=== PATIENT | male | born 1940 | race African-American/Black ===

== ENCOUNTER → 2024-12-20 | Outpatient (CLI) | payer MEDICARE, MEDICAID, SELFPAY ==
--- NOTE | 2024-12-20 08:57 | XR_ITS ---
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
== END | disposition home or self-care (01) ==
PROVIDERS: PCP Student in an Organized Health Care Education/Training Program; Referring Provider Student in an Organized Health Care Education/Training Program; Visit Provider Student in an Organized Health Care Education/Training Program
DX: M19.011 Primary osteoarthritis, right shoulder (principal)
CPT/HCPCS: 73030

== ENCOUNTER → 2024-12-23 | Outpatient (CLI) | payer MEDICARE, MEDICAID, SELFPAY ==
--- NOTE | 2024-12-23 09:37 | XR_ITS ---
Examination: Shoulder,right, 3 views Technique: Shoulder AP internal rotation, AP external rotation, Y view shoulder, 3 views Exam date and time :December 23, 2024 0940 hours Comparison December 20, 2024 INDICATIONS: Right shoulder pain one week. FINDINGS: Again noted large pulmonary mass right upper lobe, at least 9 cm Moderate osteoarthritis glenohumeral joint No shoulder fracture IMPRESSION: Again noted large pulmonary mass right upper lobe, recommend CT chest post intravenous contrast follow-up
== END | disposition home or self-care (01) ==
PROVIDERS: PCP Nurse Practitioner Family; Referring Provider Student in an Organized Health Care Education/Training Program; Visit Provider Student in an Organized Health Care Education/Training Program
DX: M19.011 Primary osteoarthritis, right shoulder (principal)
CPT/HCPCS: 73030

== ENCOUNTER → 2025-01-17 | Outpatient (CLI) | payer MEDICARE, MEDICAID, SELFPAY ==
[2025-01-17 14:54] LABS: Anion Gap 10 (7-16); BUN/Creatinine Ratio 20 Ratio (12-20); Blood Urea Nitrogen 16 mg/dL (9-23); Calcium 9.8 mg/dL (8.3-10.6); Carbon Dioxide 28.9 mMol/L (20.0-31.0); Chloride 105 mMol/L (98-107); Creatinine (Component) 0.8 mg/dL (0.6-1.3); Glucose 98 mg/dL (74-106); Osmolality,Calculated 288 (275-295); Potassium 3.9 mMol/L (3.4-5.1); Sodium 144 mMol/L (136-145); eGFR > 60 See Note
--- NOTE | 2025-01-17 16:53 | XR_ITS ---
Examination: CT chest with intravenous contrast 2-D sagittal and coronal reconstructions Exam date and time: January 17, 2025, 1751 hours INDICATIONS: Large pulmonary mass right upper lobe noted on right shoulder films December 23, 2024 CTDI:vol (mGy) 12.3 DLP: (mGycm) 4-77. Technique: Multiple axial sections of the thorax have been obtained. Sections have been obtained, 3 mm slice thickness. Mediastinal and lung density settings have been obtained. Intravenous contrast administered, 60 cc Isovue 370. 2-D sagittal, coronal images obtained. Low dose protocols were performed. One or more of the following dose reduction techniques were used; automated exposure control, adjustment of the mA and/or KV according to patient size, use of iterative reconstruction technique. 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
== END | disposition home or self-care (01) ==
LOC: CCTX 13:07 → COPL 13:12 → CCTX 02-02 15:21
PROVIDERS: Referring Provider Student in an Organized Health Care Education/Training Program; Visit Provider Student in an Organized Health Care Education/Training Program
DX: R22.2 Localized swelling, mass and lump, trunk (principal); R59.0 Localized enlarged lymph nodes; E27.8 Other specified disorders of adrenal gland; C78.01 Secondary malignant neoplasm of right lung
CPT/HCPCS: 36415; 71260; 80048; A4649; Q9967

== ENCOUNTER 2025-02-06 09:12 | Inpatient (IN) | payer MEDICARE, MEDICAID, SELFPAY ==
[2025-02-06] VITALS (11 sets, daily range): BP systolic 102–150; BP diastolic 67–88; PULSE 70–95; RESP 16–95; TEMP 36.3–37; O2SAT 92–98; BMI 30.4
--- NOTE | 2025-02-06 09:29 | PC.NURSE ---
in to assess pt. pt with c/o chronic lower back pain. per nephew chronic back pain for several years and takes norco prescribed by pcp for the pain. pt also c/o right shoulder pain x3 weeks. states he fell 2-3 weeks ago, legs gave out. pt lives alone and is normally able to get around by himself with cane or walker. pt without further complaints at this time. call light placed within reach. nephew ar bedside. pending providers orders.
--- NOTE | 2025-02-06 11:05 | EDNOTE_ITS ---
ED Back Injury Pain RME/HPI General Chief Complaint: Back Pain/Injury Stated Complaint: BACK PAIN Time Seen by Provider: 02/06/25 10:50 Arrival date/time: 02/06/25 09:12 85-year-old male who is here today for unclear reasons. He is somewhat of poor historian. He states he has right shoulder pain and low back pain. It is unclear if this is acute, chronic, or acute on chronic. He denies any chest pain. He has no abdominal pain, nausea, or vomiting. He has no diarrhea. He states he has frequent urination for the past 2 years but has no dysuria. He has no fevers or chills. He denies any lower leg edema. He states he takes about 6 medications but is not sure what they are. He lives home alone in a duplex though his nephew assists with his care. He states his nephew called 911 today. The reason for and the 911 call is unclear. He states his nephew is in the hospital but is currently not at bedside. Limitations: no limitations Related Data Home Medications ?Medication ?Instructions ?Recorded ?Confirmed lisinopril 10 mg tablet 10 mg PO QDAY ##0 06/24/09 0 12/21/20 metformin 1,000 mg tablet 1,000 mg PO BID ##0 06/24/09 12/21/20 amlodipine 5 mg tablet (Norvasc) 5 mg PO QDAY #0 tabs 01/16/17 12/21/20 albuterol sulfate 90 mcg/actuation 2 puff inhalation Q 6HR PRN 03/31/17 12/21/20 aerosol inhaler (Proventil HFA) SHORTNESS OF BREATH #0 inhalations calcium carbonate 1 tab PO QDAY 04/05/1912/21 fluticasone fur. 100 mcg-umeclid 1 puff inhalation QDA Y 04/05/19 12/21/20 62.5 mcg-vilant 25 mcg inhalat.powder (Trelegy Ellipta) tiotropium bromide 18 mcg capsule 1 cap inhalation QDA Y 04/05/19 12/21/20 with inhalation device (Spiriva with HandiHaler) valacyclovir 1 gram tablet 1 g PO HS 04/05/19 12/21/20 hydrocodone 7.5 mg-acetaminophen 1 tab PO TID PRN 08/0 01/2912/21/20 325 mg tablet (Curtice) oxybutynin chloride 10 mg 10 mg PO QDAY 08/17/2012/21 tablet,extended release 24 hr Allergies Allergy/AdvReac Type Severity Reaction Status Date / Time No Known Allergies Allergy Verified 12/21/20 15:36 Review of Systems Review of Systems Systems Reviewed: All systems reviewed, normal except as documented ED Exam General Limitations: Present no limitations General appearance: Present alert and in no apparent distress Head Head exam: Present atraumatic Eye Eye exam: Present normal appearance, PERRL and EOMI ENT ENT exam: Present normal exam, normal oropharynx and mucous membranes moist Neck Neck exam: Present normal inspection, full ROM and trachea midline Chest Chest inspection: Present normal inspection and symmetric chest wall rise Respiratory Respiratory exam: Present normal lung sounds bilaterally Cardiovascular Cardiovascular exam: Present regular rate, normal rhythm and normal heart sounds Abdominal Exam Abdominal exam: Present soft; Absent distention, guarding or rebound Extremities Exam Extremities exam: Present normal inspection and full ROM Back Exam Back exam: Present normal inspection and full ROM Neurological Exam Neurological exam: Present alert and oriented X3 Psychiatric Psychiatric exam: Present normal affect and normal mood Skin Skin exam: Present warm, dry, intact and normal color Course Course Course Narrative: Spoke with patient's primary provider, Cesar Hernández PA-C at [facility], we discussed patient's outpatient workup. He had a CT of the chest on 01/17/2025 and the results are concerning for a necrotic pulmonary mass involving the 2nd and 3rd ribs on the right side. Patient has a pending workup including CT of the neck, abdomen, and pelvis. We discussed obtaining cancer markers additionally. Patient has been referred to Dr. Baltazar with hematology and Dr. Mcdonnell with pulmonology, those appointments and approval for those referrals are pending. Will obtain the CT of the neck, abdomen, pelvis, and cardiac markers here. A call was placed to Dr. Baltazar with oncology at approximately 20 3:50 PM, Dr. Baltazar is not on-call. Spoke with the oncology team at [facility] at 1820 p.m. They are willing to assist in the patient's care. Transfer team will present this to their hospitalist team. Took call from [facility] at approximately 0651, I was informed that the hospitalist did not believe the patient met admission criteria but was willing to review the chart. They will call back. At approximately 21:50 PM, I presented the case to our [facility] hospitalist team and spoke Ortho resident physician. He will discuss this with his attending and respond. Quality Measures none Orders Category Date Time Status CT Screening NOW Care 02/06/25 13:32 Active EKG (ED ONLY) *Do not use* NOW Care 02/06/25 11:42 Completed Transfer to another facility [Transfer/Discharge] Stat Discharge 02/06/25 16:[address] chest abdomen pelvis w Stat Exams 02/06/25 13:[address] soft tissue neck w con Stat Exams 02/06/25 13:32 Completed EKG (ED Only) Stat Exams 02/06/25 11:41 Ordered XR shoulder RT min 2V Stat Exams 02/06/25 11:43 Completed Orfuw-7-Kfsesqefual* Stat Lab 02/06/25 14:10 Received CA 125 Stat Lab 02/06/25 14:10 Completed CA 15-3 Stat Lab 02/06/25 14:10 Completed CBC Stat Lab 02/06/25 12:33 Completed CMP [Comprehensive Metabolic Panel] Stat Lab 02/06/25 12:33 Completed TSH [Thyroid Stimulating Hormone] Stat Lab 02/06/25 12:33 Completed UA, C/S IF [Urinalysis, C/S if Indicated] Stat Lab 02/06/25 13:16 Completed Morphine Inj Med 02/06/25 19:40 Discontinued 2 mg IVP X1 ONE Morphine Inj Med 02/06/25 21:56 Discontinued 2 mg IVP X1 ONE Vital Signs Vital signs: Vital Signs Temperature 98.3 F 02/06/25 09:15 Pulse Rate 72 02/06/25 09:15 Respiratory Rate 17 02/06/25 09:15 Blood Pressure 110/67 02/06/25 09:15 Pulse Oximetry (%) 96 02/06/25 09:15 Oxygen Delivery Method Room Air 02/06/25 09:15 Back Pain / Injury MDM Narrative MDM Narrative:: His nephew was at bedside at a later time and informed that the patient has had increased weakness for the past month. He normally uses a cane or walker to ambulate but has had increased weakness and now is unable to walk. Patient apparently was seen by his PCP for the last 2 weeks for this workup was initiated with a do not have the results. Review of his records indicated patient had a CT of the chest on January 17. CT revealed a necrotic pulmonary mass in the right upper lobe extending to the 2nd and 3rd ribs. There is mediastinal involvement. I was able to contact his PCP, Cesar Hernández PA-C. Additional workup was request including CT of the neck, abdomen, pelvis, and cancer markers. Patient has pending referrals to oncology and pulmonology but has not been accepted. In summary, patient is a 85-year-old male with a history of type 2 diabetes, hypertension, and is here in the emergency room for increased fatigue and generalized weakness. He is now at the point where he is no longer ambulating. This is a significant change coordinator the past month. We obtained a CTA of his neck, chest, abdomen, and pelvis today. Findings are consistent with his prior CT with no other masses noted. Patient has a leukocytosis here at 16.4 K. Hemoglobin is 9.8, hematocrit is 28.9. Metabolic panel is essentially unremarkable. Urinalysis is unremarkable. Patient would benefit from oncology consult, consider biopsy in addition to cardiothoracic surgery. Transfer request was initiated. At approximately 17:05 PM, I spoke with Fadi at the transfer center at [facility]. Their oncology services have closed for the evening and will their on- call services will not be available till 6:00 in the morning tomorrow. At 20 2:15 PM, case discussed with our nightshift hospitalist team. Discussed case with the resident physician who will evaluate the patient for admission. Patient data External records reviewed:: [facility] previous records Clinical information provided by:: patient, EMS and family Social determinants that could affect healthcare access:: none Patient has the following chronic illnesses:: Hypertension, diabetes How is presenting disease/condition affected by chronic disease/condition?: uneffected by Evaluation data The following diagnostics were reviewed and interpreted by me:: EKG tracing(s) (EKG obtained today reveals normal sinus rhythm at 71 bpm with PVCs present.) Lab and/or radiology exams considered but not ordered:: n/a Interpretation Summary: Chest mass with mediastinal involvement Medications / Prescriptions Medications or Prescriptions considered but not ordered:: n/a Medication administrations:: Medication Administration History Acetaminophen (Acetaminophen 325 Mg Tablet) 650 mg PO Q6H PRN PRN Reason: PAIN SCALE 1-3 (mild Stop: 03/08/25 22:46 Hydrocodone Bitart/Acetaminophen (Hydrocodone/Apap 5/325 Tablet) 1 tab PO Q4HR PRN PRN Reason: PAIN SCALE 4-6 (Moderate Stop: 02/11/25 22:46 Dextrose (Dextrose 50%-Water Inj 50 Ml Syringe) 25 ml IV Q15MIN PRN PRN Reason: BG 50-70 responsive npo pt Stop: 03/08/25 23:03 Dextrose (Dextrose 50%-Water Inj 50 Ml Syringe) 50 ml IV Q15MIN PRN PRN Reason: BG <50 OR BG <70 & pt unresponsive Stop: 03/08/25 23:03 Glucagon (Glucagon Inj 1 Mg Vial) 1 mg IM Q15MIN PRN PRN Reason: BG <70, and no IV access Lactated Ringer's (Lactated Ringers) 1,000 mls @ 75 mls/hr IV .[id number] [facility] Stop: 03/08/25 22:59 Last Admin: 02/06/25 23:00 Dose: 75 mls/hr Documented By: MARIELA Insulin Human Lispro (Insulin Lispro (Admelog) 1 Unit/0.01 Ml Unit) 0 unit SC [facility]; Protocol Stop: 03/09/25 07:29 Morphine Sulfate (Morphine Sulf Inj 10 Mg/Ml Vial) 1 mg IVP Q4H PRN PRN Reason: PAIN SCALE 7-10 (Severe Stop: 02/11/25 22:46 Discontinued Medications Morphine Sulfate (Morphine Sulf Inj 10 Mg/Ml Vial) 2 mg IVP X1 ONE Stop: 02/06/25 19:41 Last Admin: 02/06/25 20:05 Dose: 2 mg Documented By: MARIELA Morphine Sulfate (Morphine Sulf Inj 10 Mg/Ml Vial) 2 mg IVP X1 ONE Stop: 02/06/25 21:57 Last Admin: 02/06/25 22:09 Dose: 2 mg Documented By: MARIELA See above Consultations Consultation(s) initiated? (list below): No Diagnosis Most likely diagnosis given after review of the tests above:: Chest mass with acute weakness Admission Indicated Admission indicated?: indicated Admission Request Was there a request for admission?: Yes Admission Attestation Admission request attestation: Discussed case with [] from Hospitalist service regarding admission. Discussed patients ED course, exam findings, labs, and radiology results. The Hospitalist [agrees,declines] to accept the patient for admission. Disposition Plan Disposition Plan: Admit Discharge Plan Plan Patient Disposition: Admit Acute Care w/in Hospital Patient condition on transfer: Stable Problem List Clinical Impression: Chest mass
--- NOTE | 2025-02-06 11:43 | XR_ITS ---
Examination: Shoulder,right, 3 views Technique: Shoulder AP internal rotation, AP external rotation, Y view shoulder, 3 views Exam date and time :January 17, 2025 1158 hours INDICATIONS: Right shoulder pain this week FINDINGS: Moderate narrowing glenohumeral joint No shoulder fracture or dislocation Large pulmonary mass right upper lobe, please see the CT chest report January 17, 2025 describing this mass Cortical bone destruction involving the right second and third ribs IMPRESSION: Large pulmonary neoplasm right upper lobe destroying portions of the right second and third ribs
[2025-02-06 12:47] LABS: Basophils # (Auto) 0.1 Thou/mm3 (0.0-0.2); Basophils % (Auto) 0 % (0-2.5); Eosinophils # (Auto) 0.3 Thou/mm3 (0.0-0.5); Eosinophils % (Auto) 2 % (0-10); Hematocrit 28.9 % (41.0-53.0); Hemoglobin 9.8 g/dL (13.5-16.0); Immature Granulocytes Auto 0.07 Thou/mm3 (0.00-0.00); Lymphocytes # (Auto) 3.6 Thou/mm3 (1.0-4.8); Lymphocytes % (Auto) 22 % (10-50); Mean Corpuscular HGB Conc 33.9 g/dl (31.0-37.0); Mean Corpuscular Hemoglobin 26.2 pg (25.0-35.0); Mean Corpuscular Volume 77 fL (80-100); Monocytes # (Auto) 1.6 Thou/mm3 (0.0-0.8); Monocytes % (Auto) 10 % (0-12); Neutrophils # (Auto) 10.9 Thou/mm3 (1.8-7.7); Neutrophils % (Auto) 66 % (37-80); Nucleated Red Blood Cell # 0.00 Thou/mm3 (0.00-0.00); Nucleated Red Blood Cell % 0 /100 WBC (0); Platelet Count 353 Thou/mm3 (140-440); RDW Standard Deviation 39.8 fL (35.1-43.9); Red Blood Count 3.74 Miln/mm3 (4.50-5.90); White Blood Count 16.4 Thou/mm3 (3.8-10.6)
[2025-02-06 13:09] LABS: Alanine Aminotransferase < 7 U/L (10-49); Albumin, Serum 3.9 gm/dL (3.4-4.8); Albumin/Globulin Ratio 1.3 (1.2-2.2); Alkaline Phosphatase 68 U/L (46-116); Anion Gap 8 (7-16); Aspartate Amino Transferase 14 U/L (0-34); BUN/Creatinine Ratio 14 Ratio (12-20); Bilirubin,Total 0.4 mg/dL (0.3-1.2); Blood Urea Nitrogen 11 mg/dL (9-23); Calcium 11.7 mg/dL (8.3-10.6); Calcium (Corrected) 11.8 mg/dL (8.5-10.1); Carbon Dioxide 29.6 mMol/L (20.0-31.0); Chloride 105 mMol/L (98-107); Creatinine (Component) 0.8 mg/dL (0.6-1.3); Estimated Creatinine Clearance 72.5 mL/min (>60); Globulin 2.9 gm/dL (2.3-3.5); Glucose 107 mg/dL (74-106); Osmolality,Calculated 284 (275-295); Potassium 3.9 mMol/L (3.4-5.1); Sodium 143 mMol/L (136-145); Thyroid Stimulating Hormone 0.19 uIU/mL (0.55-4.78); Total Protein 6.8 gm/dL (5.7-8.2); eGFR > 60 See Note
[2025-02-06 13:32] LABS: Collection Type, Urine Voided
--- NOTE | 2025-02-06 13:32 | XR_ITS ---
Examination: CT chest with intravenous contrast CT abdomen with intravenous contrast CT pelvis with intravenous contrast 2-D coronal and sagittal reconstructions Time of exam: February 06, 2025 1506 hours INDICATIONS: Weight loss this month with pulmonary mass right upper lobe destroying right ribs, noted on CT chest January 17, 2025 CTDI: vol (mGy) : 10.8 DLP: (mGycm): 802 Technique: Multiple axial images of the chest, abdomen and pelvis with intravenous contrast, 3.0 mm slice thickness. Images obtained post intravenous injection Isovue 370 60 cc. 2-D sagittal and coronal reconstructions. Low dose protocols were performed. One or more of the following dose reduction techniques were used; automated exposure control, adjustment of the mA and/or KV according to patient size, use of iterative reconstruction technique. Findings: Again noted necrotic pulmonary mass right upper lobe, 8.2 x 6.8 cm with bone destruction involving the right second and third rib again noted No pneumonia or pulmonary edema 5 mm pulmonary nodule right lower lobe image 222 21 mm liver cyst No focal liver lesions No gallstones Spleen not enlarged Upper pole left renal cyst, 5.8 cm Aorta normal size No bowel obstruction 25 mm fat-containing umbilical hernia No pericecal inflammatory change Colonic diverticulosis Urinary bladder intact Fat-containing left inguinal hernia Severe osteopenia with diffuse advanced lumbar degenerative disc disease IMPRESSION: 8 x 2 x 6.8 cm pulmonary neoplasm right upper lobe destroying portions of the right second and third rib 5 mm metastatic pulmonary nodule right lower lobe No abdominal or pelvic mass
--- NOTE | 2025-02-06 13:32 | XR_ITS ---
Examination: CT soft tissue neck, with intravenous contrast. 2-D coronal reconstructions. 2-D sagittal reconstructions. Date and time of exam :January 29, 2025 1506 hours INDICATIONS: Weight loss, large pulmonary mass right upper lobe destroying right upper ribs on CT chest January 17, 2025, staging. CTDI: vol (mGy):18.6 DLP: (mGycm):1 Technique: 1.25 mm axial sections of the neck of the obtained. Coronal and sagittal reconstructions have been obtained. Intravenous contrast administered 60 cc Isovue-370. Low dose protocols were performed. One or more of the following dose reduction techniques were used; automated exposure control, adjustment of the mA and/or KV according to patient size, use of iterative reconstruction technique. Findings: Symmetrical nasopharynx oropharynx No pathologic carotid triangle or submental cervical lymphadenopathy Patient motion obscures detail No definite laryngeal mass Normal gallbladder is Diffuse advanced cervical degenerative disc disease IMPRESSION: No soft tissue neck mass, consider PET CT scan follow-up for staging
[2025-02-06 13:36] LABS: Bilirubin,Urine Negative (Negative); Blood,Urine Negative (Negative); Clarity,Urine Clear (Clear/Hazy); Color,Urine Yellow (Lt Yel-Yel); Culture Indicated,Urine Not Indicated; Glucose, Urine Negative (Negative); Hyaline Casts,Urine 1 /hpf (0-1); Ketones,Urine Negative (Negative); Leukocyte Esterase,Urine Negative (Negative); Nitrite,Urine Negative (Negative); PH,Urine 6.0 (5.0-7.0); Protein,Urine Negative (Neg - Trace); RBC,Urine 2 /hpf (0-3); Specific Gravity,Urine 1.018 (1.001-1.035); Squamous Epithelial Cell,Urine 1 /hpf (0-5); Urobilinogen,Urine Negative mg/dL (0.0-1.0); WBC,Urine 3 /hpf (0-5)
[2025-02-06 15:24] LABS: CA 125 14.0 U/mL (<30.2); CA 15-3 22.8 U/mL (<32.4)
--- NOTE | 2025-02-06 16:25 | PC.CC ---
Addendum entered by Nelly Mercedes RN 02/06/25 19:16: Transfer packet started w/ CD and handed to charge nurse Estelle. ED to continue transfer search and complete transfer packet. Addendum entered by Nelly Mercedes RN 02/06/25 18:56: Called [facility] TC, per Ciara call back in about 10 min. Addendum entered by Nelly Mercedes RN 02/06/25 18:54: clinicals and imaging sent to [facility]. Addendum entered by Nelly Mercedes RN 02/06/25 18:53: 1852: per Keith restrepo/ [facility], no oncology services oncall Addendum entered by Nelly Mercedes RN 02/06/25 18:45: 1844: Sent clinicals and imaging to [facility]. 1725: per Michelle, she is waiting for Oncology to respond. Addendum entered by Nelly Mercedes RN 02/06/25 17:08: 1705: spoke to Fadi at [facility], transfer req initiated. Fadi spoke to [facility]. Fadi stated clinicals sent to oncologist but went off call at 1700 and did not respond. Will continue to look for other facilities. Addendum entered by Nelly Mercedes RN 02/06/25 16:43: 1628: spoke to Michelle at [facility], transfer request initiated. Michelle requested to speak to [facility], call initiated. Michelle will have nurse review and call back with a determination. Per Joanna, pt is a med surg level. Original Note: received order for transfer for oncology services for pulmonary mass, rib, mediastinal involvment. Clinicals sent to [facility], and [facility]. called [facility] - no oncology oncall per Qing.
[2025-02-06] MEDS: MORPHINE SULF INJ 10 MG/ML VIAL 2 MG IVP ×2 (20:05→22:09)
--- NOTE | 2025-02-06 20:42 | PC.NURSE ---
pt was soiled. this rn changed pt with the help of matias. gown and sheets were changed
--- NOTE | 2025-02-06 22:10 | PC.NURSE ---
Per Michelle at [facility], states the hospitalist team doesn't feel the need for admission and states the pt can be seen out pt. PT has been already accepted by the oncology team so can follow up out pt, with Oncologist Referral.
[2025-02-06] MEDS: RINGERS LACTATED 1000 ML 1,000 ML 75 ML IV (23:00)
[2025-02-06 23:28] LABS: Magnesium 1.5 mg/dL (1.6-2.6)
--- NOTE | 2025-02-06 23:43 | ESHP_ITS ---
<Statement entered by Raphael Larios MD - 02/08/25 07:32> I have discussed and was present for the essential components of the history, physical examination, diagnosis, and treatment plan with the resident. I agree with the patient's care as documented by the resident and amended herein by me. Raphael Larios MD FACP. Documentation for date of: 02/06/25 HPI History of Present Illness Chief complaint: Weakness History of present illness: 85-year-old male with past medical history of hypertension, yzm-qoziiss-tajjfprth type 2 diabetes, prostatectomy presenting to the ED on 02/06 with increased weakness. Patient usually lives alone but states that for the past week or so he has been have difficulty taking care of himself. Patient states that he is not able to walk as his legs are giving out but denies any loss of consciousness, dizziness, palpitations, shortness of breath or chest pain. Patient has significant history of [id number] tobacco and recently quit around October when his brother . Patient has family in [place], a niece who is close by and was updated regarding the patient's findings afterwards. Medical history: As stated above Surgical history: Prostatectomy Allergies: NKDA Home medications: Pending med rec Family history: Noncontributory Social history: 30 pack year history, remote history of alcohol use denies any illicit drug use. Patient lives alone and is usually able to take care of himself, ambulates ROS: All 12 systems assessed and the patient denies unless otherwise stated in HPI In the ED, patient presented normotensive, regular heart rate, respiratory of 17, afebrile satting 96 on room air. Pertinent lab findings included WBC 16.4, hemoglobin 9.8 with MCV of 77, creatinine 0.8, BUN 11, calcium 11.8, magnesium 1.5, TSH 0.19, urinalysis shows no signs of infection. Shoulder x-ray shows a large pulmonary neoplasm in the right upper lobe, chest CT abdomen shows 8 x 2 x 6.8 cm pulmonary neoplasm in the right upper lobe destroying portions of the right 2nd and 3rd rib, 5 mm metastatic pulmonary nodule in the right lower lobe and soft tissue of the neck which was ordered shows no soft tissue or neck mass. Patient will be admitted for the management of symptomatic hypercalcemia along with workup for very likely lung cancer with oncology consultation. Exam Vital Signs Temp Pulse Resp BP Pulse Ox O2 Del Method O2 Flow Rate 98.6 F 82 17 102/77 92 L Room Air 6 02/06/25 22:04 02/06/25 23:01 02/06/25 23:01 02/06/25 23:01 02/06/25 23:01 02/06/25 23:01 02/06/25 11:35 Narrative Exam Physical Exam: GENERAL: Awake, answering questions appropriately, appears stated age, frail appearing HEENT: NC/AT. Moist mucosa. PERRLA/EOMI. CARDIO: Heart RRR, grade II/IV systolic ejection murmur, no JVD. PULM: No coughing or visible SOB. Lungs CTA B/L but reduced breath sounds on the right upper lobe. GI: Abdomen soft, NT/ND, +BS. SKIN/MSK/EXT: No wounds/discoloration/rashes/edema/amputations. +Pedal pulses present B/L. NEURO: Oriented x3, Moves extremities x4, no focal neurologic deficits noted Results: Labs 02/06/25 12:33 02/06/25 12:33 Labs: Short CBC 02/06/25 Range/Units 12:33 WBC 16.4 H (3.8-10.6) Thou/mm3 Hgb 9.8 L (13.5-16.0) g/dL Hct 28.9 L (41.0-53.0) % Plt Count 353 (140-440) Thou/mm3 BMP 02/06/25 12:33 Sodium 143 Potassium 3.9 Chloride 105 Carbon Dioxide 29.6 BUN 11 Creatinine 0.8 Glucose 107 H Calcium 11.7 H Liver Function 02/06/25 Range/Units 12:33 Total Bilirubin 0.4 (0.3-1.2) mg/dL AST 14 (0-34) U/L ALT < 7 L (10-49) U/L Alkaline Phosphatase 68 (46-116) U/L Albumin 3.9 (3.4-4.8) gm/dL Urine 02/06/25 Range/Units 13:16 Urine Color Yellow (Lt Yel-Yel) Urine Clarity Clear (Clear/Hazy) Urine pH 6.0 (5.0-7.0) Ur Specific [place] 1.018 (1.001-1.035) Urine Protein Negative (Neg - Trace) Urine Glucose (UA) Negative (Negative) Quality Measures Quality Measures none Advance care planning discussed with:: patient and other (Niece) Medications Home Medications and Allergies Home Medications ?Medication ?Instructions ?Recorded ?Confirmed ?Type lisinopril 10 mg tablet 10 mg PO QDAY ##0 06/24/09 0 12/21/20 History metformin 1,000 mg tablet 1,000 mg PO BID ##0 06/24/09 12/21/20 History amlodipine 5 mg tablet (Norvasc) 5 mg PO QDAY #0 tabs 01/16/17 12/21/20 History albuterol sulfate 90 mcg/actuation 2 puff inhalation Q 6HR PRN 03/31/17 12/21/20 History aerosol inhaler (Proventil HFA) SHORTNESS OF BREATH #0 inhalations calcium carbonate 1 tab PO QDAY 04/05/1912/21 History fluticasone fur. 100 mcg-umeclid 1 puff inhalation QDA Y 04/05/19 12/21/20 History 62.5 mcg-vilant 25 mcg inhalat.powder (Trelegy Ellipta) tiotropium bromide 18 mcg capsule 1 cap inhalation QDA Y 04/05/19 12/21/20 History with inhalation device (Spiriva with HandiHaler) valacyclovir 1 gram tablet 1 g PO HS 04/05/19 12/21/20 History hydrocodone 7.5 mg-acetaminophen 1 tab PO TID PRN 0801/2912/21/20 History 325 mg tablet ([place]) oxybutynin chloride 10 mg 10 mg PO QDAY 08/17/2012/21 History tablet,extended release 24 hr Allergies Allergy/AdvReac Type Severity Reaction Status Date / Time No Known Allergies Allergy Verified 12/21/20 15:36 Visit Medications Acetaminophen (Acetaminophen 325 Mg Tablet) 650 mg PO Q6H PRN PRN Reason: PAIN SCALE 1-3 (mild Stop: 03/08/25 22:46 Hydrocodone Bitart/Acetaminophen (Hydrocodone/Apap 5/325 Tablet) 1 tab PO Q4HR PRN PRN Reason: PAIN SCALE 4-6 (Moderate Stop: 02/11/25 22:46 Dextrose (Dextrose 50%-Water Inj 50 Ml Syringe) 25 ml IV Q15MIN PRN PRN Reason: BG 50-70 responsive npo pt Stop: 03/08/25 23:03 Dextrose (Dextrose 50%-Water Inj 50 Ml Syringe) 50 ml IV Q15MIN PRN PRN Reason: BG <50 OR BG <70 & pt unresponsive Stop: 03/08/25 23:03 Glucagon (Glucagon Inj 1 Mg Vial) 1 mg IM Q15MIN PRN PRN Reason: BG <70, and no IV access Lactated Ringer's (Lactated Ringers) 1,000 mls @ 75 mls/hr IV .[id number] [facility] Stop: 03/08/25 22:59 Last Admin: 02/06/25 23:00 Dose: 75 mls/hr Insulin Human Lispro (Insulin Lispro (Admelog) 1 Unit/0.01 Ml Unit) 0 unit [facility]; Protocol Stop: 03/09/25 07:29 Morphine Sulfate (Morphine Sulf Inj 10 Mg/Ml Vial) 1 mg IVP Q4H PRN PRN Reason: PAIN SCALE 7-10 (Severe Stop: 02/11/25 22:46 Discontinued Medications Morphine Sulfate (Morphine Sulf Inj 10 Mg/Ml Vial) 2 mg IVP X1 ONE Stop: 02/06/25 19:41 Last Admin: 02/06/25 20:05 Dose: 2 mg Morphine Sulfate (Morphine Sulf Inj 10 Mg/Ml Vial) 2 mg IVP X1 ONE Stop: 02/06/25 21:57 Last Admin: 02/06/25 22:09 Dose: 2 mg Assessment & Plan Plan 85-year-old male with past medical history of hypertension, ain-ixypjsz-kgepoxbjp type 2 diabetes, prostatectomy presenting to the ED on 02/06 with increased weakness will be admitted for the management of symptomatic hypercalcemia along with workup for very likely lung cancer with oncology consultation. #Hypercalcemia #Paraneoplastic syndrome As noted above, patient is presenting with weakness which has been ongoing for about 1 week Likely secondary to hypercalcemia, no neurologic deficits noted on exam Hypercalcemia likely secondary to lung cancer below Plan: IV fluid resuscitation Consider using IV bisphosphonates and calcitonin but calcium is not that high yet Monitor calcium closely #Lung cancer #Possible Pancoast tumor #Leukocytosis Patient has risk factors including greater than [id number] smoking history Presenting with weakness likely secondary to hypercalcemia as above, paraneoplastic syndrome On examination, patient is on room air and lung sound clear to auscultation, reduced breath sounds on the right No source for leukocytosis found, no mention of pneumonia and urine is clean Shoulder x-ray shows a large pulmonary neoplasm in the right upper lobe Chest CT abdomen shows 8 x 2 x 6.8 cm pulmonary neoplasm in the right upper lobe destroying portions of the right 2nd and 3rd rib, 5 mm metastatic pulmonary nodule in the right lower lobe Soft tissue of the neck which was ordered shows no soft tissue or neck mass Plan: Oncology, Dr. Felix consulted appreciate recommendations Consider CT-guided biopsy per IR PT, PTT and INR ordered in a.m. #Hyperthyroidism? Patient's TSH 0.19 Plan: Follow-up on free T4 #Alc-rvwsoro-jeowlhxbp type 2 diabetes Last A1c on file from 2019, Patient only uses metformin apparently Plan: Follow-up on morning A1c Sliding-scale insulin #Hypertension Chronic medical condition, patient on home antihypertensives Plan: Restart home medications when appropriate #Microcytic anemia Differentials include: Vitamin deficiency, hemolytic anemia, anemia of chronic disease, iron deficiency anemia less likely to be bone marrow suppression Plan: Follow-up on iron panel, ferritin and reticulocyte count #21 mm liver cyst #Upper pole left renal cyst, 5.8 cm #25 mm fat-containing umbilical hernia #Colonic diverticulosis #Fat-containing left inguinal hernia #Severe osteopenia with diffuse advanced lumbar degenerative disc disease Incidental CT findings Plan: Follow-up outpatient Monitor for any acute changes Health Maintenance: Lines: PIV Diet: Cardiac Bowel: Senna as needed GI prophylaxis: Not needed DVT prophylaxis: SCD Dispo: IV fluid resuscitation for hypercalcemia, oncology consultation for lung cancer Code: Full Patient seen and assessed with attending Dr. Harriet Taylor, DO PGY-2 Internal Medicine - [facility]
--- NOTE | 2025-02-06 23:55 | PC.NURSE ---
[facility] contacted and stated they will close transfer since pt is now admitted.
[2025-02-07] VITALS (19 sets, daily range): BP systolic 109–150; BP diastolic 58–84; PULSE 70–92; RESP 16–92; TEMP 36.1–36.8; O2SAT 92–98; BMI 26.5
--- NOTE | 2025-02-07 01:30 | PC.NURSE ---
pt is Protestant. No blood transfusion if needed per pt, But per Christina (niece) if pt needs blood transfusion he needs to get it, Christina is telling pt. rn notified pt and Christina that rn will get consent for blood if needed before any blood transfusion.
--- NOTE | 2025-02-07 01:30 | PC.NURSE ---
re med rec: Per pt takes more than what Christina(nika ) brought med bottles from home- Advised nika to bring additional med bottles from home in a.m.
[2025-02-07 01:50] LABS: Calcium 10.9 mg/dL (8.3-10.6); Free T4 (Free Thyroxine) 1.36 ng/dL (0.89-1.76)
[2025-02-07] MEDS: Magnesium Sulfate 4 GM Ivpb 4 GM/50 ML BAG IV (02:14)
--- NOTE | 2025-02-07 02:32 | PC.NURSE ---
refused condom catheter placed at this time- Pt wants to sleep.
--- NOTE | 2025-02-07 02:41 | PC.NURSE ---
Zeyad Peter(daughter) lives in [place], cellphone# .
[2025-02-07 05:52] LABS: Glucose Estimated Average 120 mg/dL (80-131); Hemoglobin A1C 5.8 % Hgb (4.8-6.0)
[2025-02-07 05:57] LABS: Basophils # (Auto) 0.1 Thou/mm3 (0.0-0.2); Basophils % (Auto) 1 % (0-2.5); Eosinophils # (Auto) 0.3 Thou/mm3 (0.0-0.5); Eosinophils % (Auto) 2 % (0-10); Hematocrit 31.6 % (41.0-53.0); Hemoglobin 11.0 g/dL (13.5-16.0); Immature Granulocytes Auto 0.10 Thou/mm3 (0.00-0.00); Lymphocytes # (Auto) 2.7 Thou/mm3 (1.0-4.8); Lymphocytes % (Auto) 15 % (10-50); Mean Corpuscular HGB Conc 34.8 g/dl (31.0-37.0); Mean Corpuscular Hemoglobin 26.7 pg (25.0-35.0); Mean Corpuscular Volume 77 fL (80-100); Monocytes # (Auto) 2.1 Thou/mm3 (0.0-0.8); Monocytes % (Auto) 12 % (0-12); Neutrophils # (Auto) 12.2 Thou/mm3 (1.8-7.7); Neutrophils % (Auto) 70 % (37-80); Nucleated Red Blood Cell # 0.00 Thou/mm3 (0.00-0.00); Nucleated Red Blood Cell % 0 /100 WBC (0); Platelet Count 381 Thou/mm3 (140-440); RDW Standard Deviation 39.2 fL (35.1-43.9); Red Blood Count 4.12 Miln/mm3 (4.50-5.90); White Blood Count 17.4 Thou/mm3 (3.8-10.6)
[2025-02-07 06:09] LABS: Ferritin 559 ng/mL (10.5-307.3); Iron 17 mcg/dL (65-175); Percent Iron Saturation 8 % (20-55); Total Iron Binding Capacity 195 mcg/dL (250-425); Unsaturated Iron Binding 178 (225-295)
[2025-02-07 06:12] LABS: Parathyroid Hormone Intact 3.9 pg/ml (18.5-88.0)
[2025-02-07 06:32] LABS: Alanine Aminotransferase < 7 U/L (10-49); Albumin, Serum 3.9 gm/dL (3.4-4.8); Albumin/Globulin Ratio 1.3 (1.2-2.2); Alkaline Phosphatase 72 U/L (46-116); Anion Gap 13 (7-16); Aspartate Amino Transferase 14 U/L (0-34); BUN/Creatinine Ratio 11 Ratio (12-20); Bilirubin,Total 0.2 mg/dL (0.3-1.2); Blood Urea Nitrogen 8 mg/dL (9-23); Calcium 11.0 mg/dL (8.3-10.6); Calcium (Corrected) 11.1 mg/dL (8.5-10.1); Carbon Dioxide 27.0 mMol/L (20.0-31.0); Chloride 104 mMol/L (98-107); Creatinine (Component) 0.7 mg/dL (0.6-1.3); Estimated Creatinine Clearance 73.3 mL/min (>60); Globulin 3.0 gm/dL (2.3-3.5); Glucose 126 mg/dL (74-106); Osmolality,Calculated 287 (275-295); Potassium 3.5 mMol/L (3.4-5.1); Sodium 144 mMol/L (136-145); Total Protein 6.9 gm/dL (5.7-8.2); eGFR > 60 See Note
[2025-02-07 06:36] LABS: INR 1.1 (0.9-1.3); Partial Thromboplastin Time 34.3 Seconds (22.0-36.0); Prothrombin Time 11.6 Seconds (9.0-12.2)
[2025-02-07] MEDS: INSULIN LISPRO (AdmeLOG) 1 UNIT/0.01 ML UNIT SC (07:46)
--- NOTE | 2025-02-07 08:27 | PD.ONCCONS ---
HPI Data of Consult Requesting Physician: Raphael Larios MD Primary Care Provider: Noah Hair MD Consult Narrative Reason for consult: Suspected lung cancer History of present illness: 85-year-old gentleman with history of smoking came to ER with increased weakness, and CT of the chest abdomen pelvis 02/06/2025 revealed 8 x 2 x 6.8 cm pulm neoplasm right upper lobe destroying port to the right 2nd and 3rd rib. There is also 5 mm metastatic pulm nodule right lower lobe. There was no soft tissue neck mass or abdominal pelvic mass. A.m. labs 17.4 WBC hemoglobin 11.0 platelets 3 81,000. Corrected calcium 11.1 PT INR within normal limits. Patient referred for oncological consultation. cc:: cc: Raphael Larios MD Past Medical History Past Medical History Comments PMH COMMENT: Hypertension type 2 diabetes history of prostatectomy for prostate cancer 2017. Meds Home Medications and Allergies Home Medications ?Medication ?Instructions ?Recorded ?Confirmed ?Type lisinopril 10 mg tablet 10 mg PO QDAY ##0 06/24/09 02/07/25 History metformin 1,000 mg tablet 1,000 mg PO BID ##0 06/24/09 02/07/25 History amlodipine 5 mg tablet (Norvasc) 5 mg PO QDAY #0 tabs 01/16/17 02/07/25 History albuterol sulfate 90 mcg/actuation 2 puff inhalation Q6HR PRN 03/31/17 02/07/25 History aerosol inhaler (Proventil HFA) SHORTNESS OF BREATH #0 inhalations calcium carbonate 1 tab PO QDAY 04/05/19 12/21/20 History fluticasone fur. 100 mcg-umeclid 1 puff inhalation QDAY 04/05/19 12/21/20 History 62.5 mcg-vilant 25 mcg inhalat.powder (Trelegy Ellipta) tiotropium bromide 18 mcg capsule 1 cap inhalation QDAY 04/05/19 12/21/20 History with inhalation device (Spiriva with HandiHaler) valacyclovir 1 gram tablet 1 g PO HS 04/05/19 12/21/20 History hydrocodone 7.5 mg-acetaminophen 1 tab PO TID PRN 02/17/20 12/21/20 History 325 mg tablet ([place]) oxybutynin chloride 10 mg 10 mg PO QDAY 08/17/20 02/07/25 History tablet,extended release 24 hr famotidine 40 mg tablet 40 mg PO BID heartburn 02/07/25 02/07/25 History ibuprofen 800 mg tablet 800 mg PO Q12H PRN pain 02/07/25 02/07/25 History lisinopril 30 mg tablet 30 mg PO DAILY 02/07/25 02/07/25 History metformin 500 mg tablet 500 mg PO BID 02/07/25 02/07/25 History omeprazole 40 mg capsule,delayed 40 mg PO ACBR 02/07/25 02/07/25 History release sennosides 8.6 mg-docusate sodium 2 tab-cap PO QDAY 02/07/25 02/07/25 History 50 mg tablet (Senexon-S) tiotropium 2.5 mcg-olodaterol 2.5 2 puff inhalation DAILY COPD 02/07/25 02/07/25 History mcg/actuation mist for inhalation (Stiolto Respimat) tizanidine 4 mg tablet 4 mg PO DAILY PRN muscle relaxer 02/07/25 02/07/25 History Allergies Allergy/AdvReac Type Severity Reaction Status Date / Time No Known Allergies Allergy Verified 02/07/25 01:04 Exam Vital Signs Temp Pulse Resp BP Pulse Ox O2 Del Method O2 Flow Rate 97.6 F 92 18 109/58 L 93 L Room Air 6 02/07/25 04:00 02/07/25 04:00 02/07/25 04:00 02/07/25 04:00 02/07/25 04:00 02/07/25 04:00 02/06/25 11:35 Narrative Exam Appearing comfortable complaining of right chest pain Results Labs 02/07/25 04:26 02/07/25 04:26 Labs: Short CBC 02/06/25 02/07/25 Range/Units 12:33 04:26 WBC 16.4 H 17.4 H (3.8-10.6) Thou/mm3 Hgb 9.8 L 11.0 L (13.5-16.0) g/dL Hct 28.9 L 31.6 L (41.0-53.0) % Plt Count 353 381 (140-440) Thou/mm3 BMP 02/06/25 02/07/25 02/07/25 12:33 01:10 04:26 Sodium 143 144 Potassium 3.9 3.5 Chloride 105 104 Carbon Dioxide 29.6 27.0 BUN 11 8 L Creatinine 0.8 0.7 Glucose 107 H 126 H Calcium 11.7 H 10.9 H 11.0 H Liver Function 02/06/25 02/07/25 Range/Units 12:33 04:26 Total Bilirubin 0.4 0.2 L (0.3-1.2) mg/dL AST 14 14 (0-34) U/L ALT < 7 L < 7 L (10-49) U/L Alkaline Phosphatase 68 72 (46-116) U/L Albumin 3.9 3.9 (3.4-4.8) gm/dL Urine 02/06/25 Range/Units 13:16 Urine Color Yellow (Lt Yel-Yel) Urine Clarity Clear (Clear/Hazy) Urine pH 6.0 (5.0-7.0) Ur Specific [place] 1.018 (1.001-1.035) Urine Protein Negative (Neg - Trace) Urine Glucose (UA) Negative (Negative) Assessment and Plan Additional Assessment & Plan Additional Plan: 1. Likely lung CA right chest and former smoker. 2. History of prostate CA status post prostatectomy 2019. Will check PSA along with CEA 3. CT-guided biopsy of the right upper lobe which he agrees to. 4. Will follow. Thank for allowing me to evaluate this patient.
--- NOTE | 2025-02-07 08:37 | XR_ITS ---
Examination: CT guided percutaneous biopsy pulmonary mass right upper lobe CT thorax without intravenous contrast Date and time of procedure: February 07, 2025, 1428 hours INDICATIONS: Necrotic mass right upper lobe destroying right upper ribs on CT chest February 06, 2025 Informed consent provided. A timeout was completed verifying correct patient, procedure, site and positioning. Technique: Axial 3 mm sections were obtained for localization of the lung abnormality. Appropriate area is marked. The patient's site was prepped and draped in sterile fashion Maximal sterile barrier technique utilized, including hand hygiene Local anesthesia was obtained with 1% lidocaine. Low dose protocols were performed. One or more of the following dose reduction techniques were used; automated exposure control, adjustment of the mA and/or KV according to patient size, use of iterative reconstruction technique. Iterative CT fluoroscopic guidance for core biopsies obtained of the pulmonary mass right upper lobe Patient appears in stable condition during this procedure. At completion of the procedure, the patient is in satisfactory condition. Estimated blood loss 0 cc Complete pathology report to follow. Impression: Successful CT-guided percutaneous biopsy pulmonary mass right upper lobe
--- NOTE | 2025-02-07 09:11 | PC.CM ---
0914 I was told in report that patient's transfer has been canceled. I reviewed patient's charge and I called Dr. Emmanuel to verify that the transfer has been canceled. She states she has not yet seen the patient and she will get back to me.
[2025-02-07 11:12] LABS: Magnesium 1.8 mg/dL (1.6-2.6)
[2025-02-07 11:14] LABS: Carcinoembryonic Antigen 0.5 ng/mL (0.0-5.0)
--- NOTE | 2025-02-07 11:14 | PC.SS ---
Patient is an 85-year old male admitted for hypercalmecia. Patient was able to confirm his demographic information. Patient informs he resides alone. Patient states he utilizes a cane at home to assist with ambulation and also has a walker. Patient denies home 02 use. Patient also denies being aligned with dialysis. Patient informs he follows Dr. Noah Hair for primary care. Patient preferred pharmacy is [facility]. Patient informs he plans to return home upon discharge. Patient is also open to SNF if recommended. Community resource handout provided to the patient. D/c plan: home Next of kin: Charles durand
--- NOTE | 2025-02-07 11:49 | PD.RESPRO ---
Documentation for date of: 02/07/25 Subjective Subjective Interval history: No Overnight events. Labs reviewed and patient examined at the bedside. WBC 17.4, Calcium 11.0. Patient complains his weakness didn't change much since his admission. Patient will received CT-guided lung biopsy for his right upper lobe lung mass, per oncology, Dr. Felix. Endorses right upper back pain. Denies chest pain, palpation, abd pain, N/V, SOB, fever or chills. Exam Vital Signs Temp Pulse Resp BP Pulse Ox O2 Del Method O2 Flow Rate 97.5 F 77 20 130/76 93 L Room Air 6 02/07/25 08:00 02/07/25 08:00 02/07/25 08:00 02/07/25 08:00 02/07/25 08:00 02/07/25 08:00 02/06/25 11:35 Narrative Exam General: No acute distress, well nourished Eye: PERRL, EOMI, normal conjunctiva, no scleral icterus HENT: Normocephalic, atraumatic, hearing intact to conversation at normal volume, moist oral mucosa Neck: Supple, non-tender, no JVD, no lymphadenopathy Lungs: Non-labored respirations, symmetric chest rise, Clear to auscultate bilaterally, reduced breathe sound in right lung Heart: Peripheral pulses intact bilaterally, Regular Rate and Rhythm. grade II/IV Systolic ejection murmur. Abdomen: Soft, non-tender, non-distended Musculoskeletal: Normal range of motion and strength Skin: Skin is warm, dry, no rashes or lesions. Psychiatric: Cooperative, appropriate mood and affect Neuro: Cranial nerves II-XII grossly intact. Strength 3/5 throughout. Sensations intact to light touch. Objective Labs 02/07/25 04:26 02/07/25 04:26 Labs: Laboratory Results - last 24 hr 02/06/25 02/06/25 02/06/25 12:33 13:16 14:10 WBC 16.4 H RBC 3.74 L Hgb 9.8 L Hct 28.9 L MCV 77 L MCH 26.2 MCHC 33.9 RDW Std Deviation 39.8 Plt Count 353 Neut % (Auto) 66 Lymph % (Auto) 22 [place] % (Auto) 10 Eos % (Auto) 2 Baso % (Auto) 0 Neut # (Auto) 10.9 H Lymph # (Auto) 3.6 [place] # (Auto) 1.6 H Eos # (Auto) 0.3 Baso # (Auto) 0.1 Immature Gran # (Auto) 0.07 H Absolute Nucleated RBC 0.00 Immature Gran % 0 Nucleated RBC % 0 PT INR APTT Sodium 143 Potassium 3.9 Chloride 105 Carbon Dioxide 29.6 Anion Gap 8 BUN 11 Creatinine 0.8 Estim Creat Clear Calc 72.5 eGFR > 60 BUN/Creatinine Ratio [address] Glu mg/dL Hemoglobin A1c Calculated Osmolality 284 Calcium 11.7 H Corrected Calcium 11.8 H Magnesium 1.5 L Iron TIBC Iron Saturation Unsat Iron Binding Ferritin Total Bilirubin 0.4 AST 14 ALT < 7 L Alkaline Phosphatase 68 Total Protein 6.8 Albumin 3.9 Globulin 2.9 Albumin/Globulin Ratio 1.3 Carcinoembryonic Ag CA 15-3 Antigen 22.8 CA 125 Antigen 14.0 TSH 0.19 L Free T4 PTH Intact Ur Collection Type Voided Urine Color Yellow Urine Clarity Clear Urine pH 6.0 Ur Specific [place] 1.018 Urine Protein Negative Urine Glucose (UA) Negative Urine Ketones Negative Urine Blood Negative Urine Nitrite Negative Urine Bilirubin Negative Urine Urobilinogen (Auto) Negative Ur Leukocyte Esterase Negative Urine RBC 2 Urine WBC 3 Ur Squamous Epith Cells 1 Urine Bacteria None Hyaline Casts 1 Ur Culture Indicated? Not Indicated 02/07/25 02/07/25 02/07/25 01:10 04:26 10:15 WBC 17.4 H RBC 4.12 L Hgb 11.0 L Hct 31.6 L MCV 77 L MCH 26.7 MCHC 34.8 RDW Std Deviation 39.2 Plt Count 381 Neut % (Auto) 70 Lymph % (Auto) 15 [place] % (Auto) 12 Eos % (Auto) 2 Baso % (Auto) 1 Neut # (Auto) 12.2 H Lymph # (Auto) 2.7 [place] # (Auto) 2.1 H Eos # (Auto) 0.3 Baso # (Auto) 0.1 Immature Gran # (Auto) 0.10 H Absolute Nucleated RBC 0.00 Immature Gran % 1 H Nucleated RBC % 0 PT 11.6 INR 1.1 APTT 34.3 Sodium 144 Potassium 3.5 Chloride 104 Carbon Dioxide 27.0 Anion Gap 13 BUN 8 L Creatinine 0.7 Estim Creat Clear Calc 73.3 eGFR > 60 BUN/Creatinine Ratio 11 L Glucose [address] Glu mg/dL 120 Hemoglobin A1c 5.8 Calculated Osmolality 287 Calcium 10.9 H 11.0 H Corrected Calcium 11.1 H Magnesium 1.8 Iron 17 L TIBC 195 L Iron Saturation 8 L Unsat Iron Binding 178 L Ferritin 559 H Total Bilirubin 0.2 L AST 14 ALT < 7 L Alkaline Phosphatase 72 Total Protein 6.9 Albumin 3.9 Globulin 3.0 Albumin/Globulin Ratio 1.3 Carcinoembryonic Ag 0.5 CA 15-3 Antigen CA 125 Antigen TSH Free T4 1.36 PTH Intact 3.9 L Ur Collection Type Urine Color Urine Clarity Urine pH Ur Specific [place] Urine Protein Urine Glucose (UA) Urine Ketones Urine Blood Urine Nitrite Urine Bilirubin Urine Urobilinogen (Auto) Ur Leukocyte Esterase Urine RBC Urine WBC Ur Squamous Epith Cells Urine Bacteria Hyaline Casts Ur Culture Indicated? Quality Measures Quality Measures none Advance care planning discussed with:: patient Assessment & Plan Assessment Current Active Medications: Generic Name Dose Route Start Last Admin Trade Name Freq PRN Reason Stop Dose Admin Acetaminophen 650 mg 02/06/25 22:47 Acetaminophen 325 Mg Tablet PO 03/08/25 22:46 Q6H PRN PAIN SCALE 1-3 (mild Hydrocodone Bitart/Acetaminophen 1 tab 02/06/25 22:47 Hydrocodone/Apap 5/325 Tablet PO 02/11/25 22:46 Q4HR PRN PAIN SCALE 4-6 (Moderate Dextrose 25 ml 02/06/25 23:04 Dextrose 50%-Water Inj 50 Ml Syringe IV 03/08/25 23:03 Q15MIN PRN BG 50-70 responsive npo pt Dextrose 50 ml 02/06/25 23:04 Dextrose 50%-Water Inj 50 Ml Syringe IV 03/08/25 23:03 Q15MIN PRN BG <50 OR BG <70 & pt unresponsive Glucagon 1 mg 02/06/25 23:04 Glucagon Inj 1 Mg Vial IM Q15MIN PRN BG <70, and no IV access Lactated Ringer's 1,000 mls @ 75 mls/hr 02/06/25 23:00 02/06/25 23:00 Lactated Ringers IV 03/08/25 22:59 75 mls/hr .[id number] WM Administration Insulin Human Lispro 0 unit 02/07/25 07:30 02/07/25 11:44 Insulin Lispro (Admelog) 1 Unit/0.01 Ml Unit SC 03/09/25 07:29 Not Given ACHS WM Protocol Levalbuterol HCl 0.63 mg 02/07/25 05:24 Levalbuterol Rt 0.63 Mg/3 Ml Nebu INH 03/09/25 05:23 Q8HR PRN WHEEZING Morphine Sulfate 1 mg 02/06/25 22:47 Morphine Sulf Inj 10 Mg/Ml Vial IVP 02/11/25 22:46 Q4H PRN PAIN SCALE 7-10 (Severe Pharmacy Consult 1 each 02/07/25 01:06 Pharmacy To Consult Patient XX 03/09/25 01:05 PRN PRN CONSULT Plan 85-year-old male with past medical history of hypertension, [id number] type 2 diabetes, prostatectomy presenting to the ED on 02/06 with increased weakness will be admitted for the management of symptomatic hypercalcemia along with workup for very likely lung cancer with oncology consultation. #Hypercalcemia #Paraneoplastic syndrome As noted above, patient is presenting with weakness which has been ongoing for about 1 week Likely secondary to hypercalcemia, no neurologic deficits noted on exam Hypercalcemia likely secondary to lung cancer below Corrected calcim: 11.1 Plan: IV fluid resuscitation LR 1L 75ml/hr Consider using IV bisphosphonates and calcitonin but calcium is not that high yet Monitor calcium closely #Lung cancer #Possible Pancoast tumor #Leukocytosis Patient has risk factors including greater than [id number] smoking history Presenting with weakness likely secondary to hypercalcemia as above, paraneoplastic syndrome On examination, patient is on room air and lung sound clear to auscultation, reduced breath sounds on the right No source for leukocytosis found, no mention of pneumonia and urine is clean Shoulder x-ray shows a large pulmonary neoplasm in the right upper lobe Chest CT abdomen shows 8 x 2 x 6.8 cm pulmonary neoplasm in the right upper lobe destroying portions of the right 2nd and 3rd rib, 5 mm metastatic pulmonary nodule in the right lower lobe Soft tissue of the neck which was ordered shows no soft tissue or neck mass Plan: Oncology, Dr. Felix consulted appreciate recommendations Pending CT-guided biopsy or right upper lobe, per oncologist, Dr. Felix. PT, PTT and INR ordered in a.m. #Hyperthyroidism? Patient's TSH 0.19 Plan: Follow-up on free T4 #Hpw-myzhkkt-mggfsedvu type 2 diabetes Last A1c on file from 2019, Patient only uses metformin apparently HbA1c:5.8 Plan: Follow-up on morning A1c Sliding-scale insulin #Hypertension Chronic medical condition, patient on home antihypertensives Plan: Restart home medications when appropriate #Microcytic anemia Differentials include: Vitamin deficiency, hemolytic anemia, anemia of chronic disease, iron deficiency anemia less likely to be bone marrow suppression Plan: Follow-up on iron panel, ferritin and reticulocyte count #21 mm liver cyst #Upper pole left renal cyst, 5.8 cm #25 mm fat-containing umbilical hernia #Colonic diverticulosis #Fat-containing left inguinal hernia #Severe osteopenia with diffuse advanced lumbar degenerative disc disease Incidental CT findings Plan: Follow-up outpatient Monitor for any acute changes Health Maintenance: Lines: PIV Diet: Cardiac Bowel: Senna as needed GI prophylaxis: Not needed DVT prophylaxis: SCD Dispo: IV fluid resuscitation for hypercalcemia, oncology consultation for lung cancer Code: Full Assessment and plan discussed with my attending physician Dr. Ramiro Scott (PGY-1)- Internal medicine resident Attending Provider Attestation/Addendum I attest that I was physically present for the evaluation, physical examination, lab and imaging review of the patient with the residents. I discussed the case with the residents and agree with the findings and plans of care as documented above. Patient is an 85 years old male with past medical history of hypertension, diabetes mellitus, prostatectomy who presented to the ED with complaint of increased weakness. Patient was admitted overnight for management of hypercalcemia likely secondary to paraneoplastic syndrome in setting of suspected lung cancer. At bedside today, patient states he feels about the same compared to yesterday. Vital signs are stable, saturating well on room air. Patient underwent CT-guided biopsy of right upper lobe mass as recommended by oncology. Continues to be on analgesic regimen for pain. We will continue with insulin regimen for diabetes, home antihypertensive for hypertension. Calcium level is stable at 11.1 today, we will continue with IV hydration, Ringer's lactate at 75 cc/h. We will monitor him closely for any complications from lung biopsy today, awaiting further oncology recommendations. Shahid Rubio MD
--- NOTE | 2025-02-07 11:49 | PC.NURSE ---
Update on pts status given to daughter arvin over the phone. Per family member they are planning on taking pt home and not SNF placement at this time.
[2025-02-07] MEDS: fentaNYL CIT INJ 50 mCg/ML AMP 2ML 75 MCG IVP (14:36)
--- NOTE | 2025-02-07 14:56 | XR_ITS ---
Examination: AP chest single view Technique one AP portable semiupright chest single view Date and time: February 07, 2025 1509 hours INDICATIONS: Post biopsy pulmonary mass right upper lobe today. FINDINGS: No pneumothorax post biopsy pulmonary mass right upper lobe Normal heart size IMPRESSION: No pneumothorax post biopsy pulmonary mass right upper lobe
--- NOTE | 2025-02-07 15:08 | PC.SS ---
Addendum entered by TRAY Taylor 02/08/25 07:28: Late entry from 02-07-25: Spoke with patient and family about the recommendation for SNF. They are agreeable to short term SNF in [place] or [facility]. No preferred facility. Original Note: Rounding note: Patient is pending CT-guided lung biopsy. PT has also recommended SNF for the patient.
--- NOTE | 2025-02-07 15:52 | PC.CM ---
[address] Emmanuel and patient's transfer has been canceled.
--- NOTE | 2025-02-07 15:59 | PC.NURSE ---
patient transfered back to room [facility] patient alert. hand off report given to jackson rich. Juhi rich and I assessed site and dressing. dressing is clean dry and intact. site is soft, flat, and no signs of hematoma. second chest x-ray to be performed at bedside at 1610. jackson rich made aware. first x-ray completed in color laboratory technician. see imaging for results.
[2025-02-07] MEDS: MORPHINE SULF INJ 10 MG/ML VIAL IVP ×2 (16:04→20:09)
--- NOTE | 2025-02-07 16:10 | XR_ITS ---
Examination: AP chest single view TECHNIQUE: Portable sitting AP chest single view Date and time: February 07, 2025, 1608 hours INDICATIONS: Status post biopsy pulmonary mass right upper lobe today FINDINGS: Pulmonary mass right upper lobe. No pneumothorax post biopsy today IMPRESSION: No pneumothorax post lung biopsy today
[2025-02-07] MEDS: RINGERS LACTATED 1000 ML 1,000 ML 75 ML IV (19:16)
[2025-02-08] VITALS (7 sets, daily range): BP systolic 128–158; BP diastolic 66–82; PULSE 64–88; RESP 17–18; TEMP 36.1–36.6; O2SAT 92–94
[2025-02-08 05:31] LABS: Basophils # (Auto) 0.1 Thou/mm3 (0.0-0.2); Basophils % (Auto) 0 % (0-2.5); Eosinophils # (Auto) 0.3 Thou/mm3 (0.0-0.5); Eosinophils % (Auto) 2 % (0-10); Hematocrit 29.8 % (41.0-53.0); Hemoglobin 10.2 g/dL (13.5-16.0); Immature Granulocytes Auto 0.06 Thou/mm3 (0.00-0.00); Immature Reticulocyte Fraction 13.6 % (2.3-13.4); Lymphocytes # (Auto) 2.9 Thou/mm3 (1.0-4.8); Lymphocytes % (Auto) 18 % (10-50); Mean Corpuscular HGB Conc 34.2 g/dl (31.0-37.0); Mean Corpuscular Hemoglobin 26.3 pg (25.0-35.0); Mean Corpuscular Volume 77 fL (80-100); Monocytes # (Auto) 2.0 Thou/mm3 (0.0-0.8); Monocytes % (Auto) 12 % (0-12); Neutrophils # (Auto) 11.1 Thou/mm3 (1.8-7.7); Neutrophils % (Auto) 68 % (37-80); Nucleated Red Blood Cell # 0.00 Thou/mm3 (0.00-0.00); Nucleated Red Blood Cell % 0 /100 WBC (0); Platelet Count 362 Thou/mm3 (140-440); RDW Standard Deviation 39.2 fL (35.1-43.9); Red Blood Count 3.88 Miln/mm3 (4.50-5.90); Reticulocyte % (Auto) 0.9 % (0.5-1.5); Reticulocyte Absolute Auto 34.5 Biln/L (25.0-75.0); Reticulocyte Hgb Content 29.9 pg (28.0-35.0); White Blood Count 16.5 Thou/mm3 (3.8-10.6)
[2025-02-08 05:51] LABS: Path Review Blood Smear Sent to Pathologist
[2025-02-08 06:02] LABS: Alanine Aminotransferase < 7 U/L (10-49); Albumin, Serum 3.6 gm/dL (3.4-4.8); Albumin/Globulin Ratio 1.2 (1.2-2.2); Alkaline Phosphatase 68 U/L (46-116); Anion Gap 10 (7-16); Aspartate Amino Transferase 14 U/L (0-34); BUN/Creatinine Ratio 13 Ratio (12-20); Bilirubin,Total 0.4 mg/dL (0.3-1.2); Blood Urea Nitrogen 9 mg/dL (9-23); Calcium 11.2 mg/dL (8.3-10.6); Calcium (Corrected) 11.5 mg/dL (8.5-10.1); Carbon Dioxide 29.8 mMol/L (20.0-31.0); Chloride 106 mMol/L (98-107); Creatinine (Component) 0.7 mg/dL (0.6-1.3); Estimated Creatinine Clearance 73.3 mL/min (>60); Globulin 3.0 gm/dL (2.3-3.5); Glucose 134 mg/dL (74-106); Magnesium 1.4 mg/dL (1.6-2.6); Osmolality,Calculated 291 (275-295); Phosphorous 2.7 mg/dL (2.4-5.1); Potassium 3.6 mMol/L (3.4-5.1); Sodium 146 mMol/L (136-145); Total Protein 6.6 gm/dL (5.7-8.2); eGFR > 60 See Note
--- NOTE | 2025-02-08 07:25 | PC.NURSE ---
Checked on pt. at this time. Pt. appeared to be awake, but when RN asked pt. how are you feeling patient jumped and got upset stating not good, you people don't let me get any rest. Pt. educated that it is the nursing staffs job to check on patients and make sure they are okay. Pt. settled and states I am okay. Pt. allowed to return to resting.
--- NOTE | 2025-02-08 07:34 | PC.SS ---
Addendum entered by TRAY Taylor 02/08/25 07:41: SS update: SNF referral sent via [employer]. Pending responses. Original Note: SS follow up: PASRR was completed. LV1.
--- NOTE | 2025-02-08 09:43 | PD.RESPRO ---
Documentation for date of: 02/08/25 Senior resident attestation: Patient evaluated and examined at the bedside, plan of care discussed with rest of the team including my attending physician, except as noted. Patient status post CT-guided biopsy for lung mass right upper lobe, pending pathology report for final diagnosis. Dr. Felix radiation oncologist spoke to patient's person to contact, nephew Charles Talbot, family wanted to change the point of care to the niece. Family had questions regarding future treatment options including surgery as well as staging of cancer, we told them that that would require further testing and final results from pathology report as well as an oncologist appointment. The oncologist would be the better person to answer the question whether surgery is required or not. The patient can be discharged tomorrow for correction rehab placement. Quresh PGY3 Subjective Subjective Interval history: No Overnight events. Labs reviewed and patient examined at the bedside. Patient endorses pain in his right upper chest with generalized weakness. Patient underwent CT guided lung biopsy for lung mass in right upper lobe. Per physical therapy recommendations, the patient would benefit from short-term placement in a correction facility (SNF) for continued physical therapy to increase strength and functional activity tolerance. Denies palpation, SOB, abdominal pain, N/V, fevers or chills. Exam Vital Signs Temp Pulse Resp BP Pulse Ox O2 Del Method O2 Flow Rate 97 F 79 18 145/78 H 93 L Room Air 3 02/08/25 08:00 02/08/25 08:00 02/08/25 08:00 02/08/25 08:00 02/08/25 08:00 02/08/25 08:00 02/07/25 14:50 Narrative Exam General: No acute distress, well nourished Eye: PERRL, EOMI, normal conjunctiva, no scleral icterus HENT: Normocephalic, atraumatic, hearing intact to conversation at normal volume, moist oral mucosa Neck: Supple, non-tender, no JVD, no lymphadenopathy Lungs: Non-labored respirations, symmetric chest rise, Clear to auscultate bilaterally, reduced breathe sound in right lung Heart: Peripheral pulses intact bilaterally, Regular Rate and Rhythm. grade II/IV Systolic ejection murmur. Abdomen: Soft, non-tender, non-distended Musculoskeletal: Normal range of motion and strength Skin: Skin is warm, dry, no rashes or lesions. Psychiatric: Cooperative, appropriate mood and affect Neuro: Cranial nerves II-XII grossly intact. Strength 3/5 throughout. Sensations intact to light touch. Objective Labs 02/09/25 04:30 02/09/25 04:30 Labs: Laboratory Results - last 24 hr 02/07/25 02/08/25 10:15 04:43 WBC 16.5 H RBC 3.88 L Hgb 10.2 L Hct 29.8 L MCV 77 L MCH 26.3 MCHC 34.2 RDW Std Deviation 39.2 Plt Count 362 Neut % (Auto) 68 Lymph % (Auto) 18 [place] % (Auto) 12 Eos % (Auto) 2 Baso % (Auto) 0 Neut # (Auto) 11.1 H Lymph # (Auto) 2.9 [place] # (Auto) 2.0 H Eos # (Auto) 0.3 Baso # (Auto) 0.1 Immature Gran # (Auto) 0.06 H Absolute Nucleated RBC 0.00 Immature Gran % 0 Nucleated RBC % 0 Smear Path Review Sent to Pathologist Retic Count (auto) 0.9 Absolute Retic 34.5 Immature Retic Fraction 13.6 H Retic Hgb Content CHr 29.9 Sodium 146 H Potassium 3.6 Chloride 106 Carbon Dioxide 29.8 Anion Gap 10 BUN 9 Creatinine 0.7 Estim Creat Clear Calc 73.3 eGFR > 60 BUN/Creatinine Ratio 13 Glucose 134 H Calculated Osmolality 291 Calcium 11.2 H Corrected Calcium 11.5 H Phosphorus 2.7 Magnesium 1.8 1.4 L Total Bilirubin 0.4 AST 14 ALT < 7 L Alkaline Phosphatase 68 Total Protein 6.6 Albumin 3.6 Globulin 3.0 Albumin/Globulin Ratio 1.2 Carcinoembryonic Ag 0.5 Quality Measures Quality Measures none Advance care planning discussed with:: patient Assessment & Plan Assessment Current Active Medications: Generic Name Dose Route Start Last Admin Trade Name Freq PRN Reason Stop Dose Admin Acetaminophen 650 mg 02/06/25 22:47 Acetaminophen 325 Mg Tablet PO 03/08/25 22:46 Q6H PRN PAIN SCALE 1-3 (mild Hydrocodone Bitart/Acetaminophen 1 tab 02/06/25 22:47 Hydrocodone/Apap 5/325 Tablet PO 02/11/25 22:46 Q4HR PRN PAIN SCALE 4-6 (Moderate Hydrocodone Bitart/Acetaminophen 1 tab 02/08/25 09:07 Hydrocodone/Apap 10/325 Tab PO 02/13/25 09:06 Q6HR PRN PAIN SCALE 7-10 (Severe Dextrose 25 ml 02/06/25 23:04 Dextrose 50%-Water Inj 50 Ml Syringe IV 03/08/25 23:03 Q15MIN PRN BG 50-70 responsive npo pt Dextrose 50 ml 02/06/25 23:04 Dextrose 50%-Water Inj 50 Ml Syringe IV 03/08/25 23:03 Q15MIN PRN BG <50 OR BG <70 & pt unresponsive Glucagon 1 mg 02/06/25 23:04 Glucagon Inj 1 Mg Vial IM Q15MIN PRN BG <70, and no IV access Lactated Ringer's 1,000 mls @ 75 mls/hr 02/08/25 09:30 Lactated Ringers IV 03/10/25 09:29 .[id number] [facility] Insulin Human Lispro 0 unit 02/07/25 07:30 02/08/25 06:44 Insulin Lispro (Admelog) 1 Unit/0.01 Ml Unit SC 03/09/25 07:29 Not Given ACHS [facility] Protocol Levalbuterol HCl 0.63 mg 02/07/25 05:24 Levalbuterol Rt 0.63 Mg/3 Ml Nebu INH 03/09/25 05:23 Q8HR PRN WHEEZING Morphine Sulfate 2 mg 02/08/25 09:08 Morphine Sulf Inj 10 Mg/Ml Vial IVP 02/11/25 22:46 Q4H PRN BREAKTHROUGH PAIN (SEVERE) Protocol Pharmacy Consult 1 each 02/07/25 01:06 Pharmacy To Consult Patient XX 03/09/25 01:05 PRN PRN CONSULT Plan 85-year-old male with past medical history of hypertension, [id number]-[id number] type 2 diabetes, prostatectomy presenting to the ED on 02/06 with increased weakness will be admitted for the management of symptomatic hypercalcemia along with workup for very likely lung cancer with oncology consultation. #Hypercalcemia #Paraneoplastic syndrome As noted above, patient is presenting with weakness which has been ongoing for about 1 week Likely secondary to hypercalcemia, no neurologic deficits noted on exam Hypercalcemia likely secondary to lung cancer below Corrected calcim: 11.1 Plan: IV fluid resuscitation LR 1L 75ml/hr Consider using IV bisphosphonates and calcitonin but calcium is not that high yet Monitor calcium closely #Lung cancer #Possible Pancoast tumor #Leukocytosis Patient has risk factors including greater than [id number] smoking history Presenting with weakness likely secondary to hypercalcemia as above, paraneoplastic syndrome On examination, patient is on room air and lung sound clear to auscultation, reduced breath sounds on the right No source for leukocytosis found, no mention of pneumonia and urine is clean Shoulder x-ray shows a large pulmonary neoplasm in the right upper lobe Chest CT abdomen shows 8 x 2 x 6.8 cm pulmonary neoplasm in the right upper lobe destroying portions of the right 2nd and 3rd rib, 5 mm metastatic pulmonary nodule in the right lower lobe Soft tissue of the neck which was ordered shows no soft tissue or neck mass Plan: -Oncology, Dr. Felix consulted appreciate recommendations -Patient underwent CT guided lung biopsy for lung mass in Right upper lobe. #Hyperthyroidism? Patient's TSH 0.19 Plan: Follow-up on free T4 #Egq-iyumdko-ruxfkxciu type 2 diabetes Last A1c on file from 2019, Patient only uses metformin apparently HbA1c:5.8 Plan: Follow-up on morning A1c Sliding-scale insulin #Hypertension Chronic medical condition, patient on home antihypertensives Plan: Restart home medications when appropriate #Microcytic anemia Differentials include: Vitamin deficiency, hemolytic anemia, anemia of chronic disease, iron deficiency anemia less likely to be bone marrow suppression Plan: Follow-up on iron panel, ferritin and reticulocyte count #21 mm liver cyst #Upper pole left renal cyst, 5.8 cm #25 mm fat-containing umbilical hernia #Colonic diverticulosis #Fat-containing left inguinal hernia #Severe osteopenia with diffuse advanced lumbar degenerative disc disease Incidental CT findings Plan: Follow-up outpatient Monitor for any acute changes Health Maintenance: Lines: PIV Diet: Cardiac Bowel: Senna as needed GI prophylaxis: Not needed DVT prophylaxis: SCD Dispo: IV fluid resuscitation for hypercalcemia, oncology consultation for lung cancer Code: Full Assessment and plan discussed with my attending physician Dr. Rubio and Dr. Douglas (PGY-3) Dr. Scott (PGY-1)- Internal medicine resident Attending Provider Attestation/Addendum I attest that I was physically present for the evaluation, physical examination, lab and imaging review of the patient with the residents. I discussed the case with the residents and agree with the findings and plans of care as documented above. At bedside today, patient appears comfortable and denies any new complaints. Vitals are stable, lab results show improving WBC. Sodium level is 146 this morning, we will encourage oral free water intake. Calcium level noted to be 11.5 slightly worsened compared to yesterday. Magnesium is 1.4, and potassium 3.6, repleted accordingly. We will also obtain 125 dihydroxy vitamin D, 25-hydroxy vitamin D and PTH RP level given his elevated calcium, low PTH and concern for malignancy. Family at bedside updated extensively about his current condition, imaging findings, further management plans, patient and family agree with the plans. We will obtain physical therapy, further recommendation from oncology. Plan to discharge in next 24 to 48 hours if remains stable. Shahid Rubio MD
--- NOTE | 2025-02-08 09:45 | PC.NURSE ---
pt. denies pain at this time. Pt. requesting cold water. cold water given to pt. per pt. request
[2025-02-08] MEDS: RINGERS LACTATED 1000 ML 1,000 ML 75 ML IV (09:51)
--- NOTE | 2025-02-08 11:35 | PC.NURSE ---
per Dr. Hickman give IV and PO magnesium as ordered.
[2025-02-08] MEDS: MAGNESIUM OXIDE 400 MG TABLET PO (12:26)
[2025-02-08] MEDS: Magnesium Sulfate 2 GM Ivpb 2 GM/50 ML BAG IV (12:26)
[2025-02-08 13:26] LABS: Misc Send Out* See Sep Rpt
[2025-02-08 14:21] LABS: Prostate Specific Antigen < 0.10 ng/mL (0-4.00)
[2025-02-08 14:23] LABS: Vitamin D 25 Hydroxy Total 101.1 ng/mL (7.3-40.2)
--- NOTE | 2025-02-08 15:09 | PC.NURSE ---
Dr. Scott made aware pt. has not had BM since before admit, plans for DC tomorrow. states I will enter an order PRN.
--- NOTE | 2025-02-08 15:10 | PC.NURSE ---
Called PT Scott for PT treatment per family request.
[2025-02-08] MEDS: LACTULOSE SYRUP 20 GM/30 ML UDC PO (15:42)
--- NOTE | 2025-02-08 15:59 | PC.SS ---
Addendum entered by TRAY Taylor 02/08/25 16:14: SS follow up: Reached out to [facility] to identify if they can accept the patient tomorrow if ready for d/c and pending response from their admin. Original Note: SS follow up: patient and family agreeable to SNF. Choices presented of accepting facilities and they selected [facility] in [place]. Patient is pending three midnights criteria per medicare guidelines before d/c and oncologist, Dr. Felix consult.
--- NOTE | 2025-02-08 17:14 | PC.NURSE ---
called team B x3 called now to ask to provide family with update regarding CT Biopsy results. Called Dr. Felix x2 no answer.
[2025-02-08] MEDS: HYDROcodone/APAP 5/325 TABLET 1 TAB PO (18:00)
[2025-02-08] MEDS: INSULIN LISPRO (AdmeLOG) 1 UNIT/0.01 ML UNIT SC (20:32)
[2025-02-09] VITALS: BP 123/70; PULSE 62; PULSE 88; RESP 15; TEMP 36.2; O2SAT 93
[2025-02-09] MEDS: RINGERS LACTATED 1000 ML 1,000 ML 75 ML IV (00:04)
[2025-02-09 00:58] VITALS: PULSE 63; RESP 18; O2SAT 92
[2025-02-09 04:00] VITALS: BP 134/66; PULSE 76; PULSE 83; RESP 15; TEMP 36.1; O2SAT 91
[2025-02-09 05:31] LABS: Basophils # (Auto) 0.1 Thou/mm3 (0.0-0.2); Basophils % (Auto) 0 % (0-2.5); Eosinophils # (Auto) 0.3 Thou/mm3 (0.0-0.5); Eosinophils % (Auto) 2 % (0-10); Hematocrit 30.1 % (41.0-53.0); Hemoglobin 10.0 g/dL (13.5-16.0); Immature Granulocytes Auto 0.08 Thou/mm3 (0.00-0.00); Lymphocytes # (Auto) 2.6 Thou/mm3 (1.0-4.8); Lymphocytes % (Auto) 16 % (10-50); Mean Corpuscular HGB Conc 33.2 g/dl (31.0-37.0); Mean Corpuscular Hemoglobin 25.8 pg (25.0-35.0); Mean Corpuscular Volume 78 fL (80-100); Monocytes # (Auto) 1.9 Thou/mm3 (0.0-0.8); Monocytes % (Auto) 11 % (0-12); Neutrophils # (Auto) 11.8 Thou/mm3 (1.8-7.7); Neutrophils % (Auto) 71 % (37-80); Nucleated Red Blood Cell # 0.00 Thou/mm3 (0.00-0.00); Nucleated Red Blood Cell % 0 /100 WBC (0); Platelet Count 347 Thou/mm3 (140-440); RDW Standard Deviation 39.8 fL (35.1-43.9); Red Blood Count 3.88 Miln/mm3 (4.50-5.90); White Blood Count 16.7 Thou/mm3 (3.8-10.6)
[2025-02-09 05:48] LABS: Alanine Aminotransferase 18 U/L (10-49); Albumin, Serum 3.4 gm/dL (3.4-4.8); Albumin/Globulin Ratio 1.3 (1.2-2.2); Alkaline Phosphatase 74 U/L (46-116); Anion Gap 7 (7-16); Aspartate Amino Transferase 25 U/L (0-34); BUN/Creatinine Ratio 16 Ratio (12-20); Bilirubin,Total 0.5 mg/dL (0.3-1.2); Blood Urea Nitrogen 11 mg/dL (9-23); Calcium 11.4 mg/dL (8.3-10.6); Calcium (Corrected) 11.9 mg/dL (8.5-10.1); Carbon Dioxide 28.5 mMol/L (20.0-31.0); Chloride 110 mMol/L (98-107); Creatinine (Component) 0.7 mg/dL (0.6-1.3); Estimated Creatinine Clearance 73.3 mL/min (>60); Globulin 2.6 gm/dL (2.3-3.5); Glucose 123 mg/dL (74-106); Magnesium 1.6 mg/dL (1.6-2.6); Osmolality,Calculated 289 (275-295); Phosphorous 2.8 mg/dL (2.4-5.1); Potassium 3.6 mMol/L (3.4-5.1); Sodium 145 mMol/L (136-145); Total Protein 6.0 gm/dL (5.7-8.2); eGFR > 60 See Note
[2025-02-09 08:00] VITALS: BP 145/84; PULSE 79; PULSE 80; RESP 18; TEMP 36.5; O2SAT 92
--- NOTE | 2025-02-09 08:12 | PC.SS ---
Addendum entered by TRAY Taylor 02/09/25 14:38: [facility] staff Aviva was also updated. Addendum entered by TRAY Taylor 02/09/25 14:35: ETA with [facility] is 1600. RN updated. Addendum entered by Fatimah Smith BOARD CERTIFIED BEHAVIORAL ANALYST 02/09/25 10:31: [employer] transportation reference number: [id number]. Pending ETA. RN Shira aware. Confirms patient had a BM yesterday. Addendum entered by TRAY Taylor 02/09/25 10:21: DC summary sent via [employer]. PAS[facility] sent via file exchange to [facility]. Addendum entered by TRAY Taylor 02/09/25 10:15: SS update: Aviva at [facility] in [place] confirms they can accept the patient at their facility today. Addendum entered by TRAY Taylor 02/09/25 10:07: SS follow up: attempted contact with Aviva at [facility] in [place]. She was unavailable and voicemail was provided. Original Note: SS follow up: attempted contact with Aviva at [facility] in [place]. She was unavailable and voicemail was provided.
[2025-02-09] MEDS: MAGNESIUM OXIDE 400 MG TABLET PO (08:30)
[2025-02-09] MEDS: POTASSIUM PHOS 22.5 MMOL in SODIUM CHLORIDE 0.9% 500 ML 500 ML 82.778 MMOL IV (08:50)
--- NOTE | 2025-02-09 09:26 | PD.RESDS ---
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 Health Equity Referral - Safety Routine Comment: Positive screening for safety needs. 02/07/25 01:25 Referral Registered Dietitian Routine Comment: 02/07/25 08:00 Referral Physical Therapy Routine Comment: Physician Instructions: Attending Provider on DC: RESIDENT Jorge Discharging Provider: RESIDENT Jorge DS: Diagnosis Problem List Completed Was Problem List Reviewed/Reconciled?: Yes Hospital Course Hospital Course Hospital course: Summary: 85-year-old male with past medical history of hypertension, xgg-aibatww-kaeawpypb type 2 diabetes, prostate cancer s/p prostatectomy was admitted on 02/06/2025 for management of hypercalcemia and workup for very likely lung cancer with oncology consultation. ED course: In the ED, patient presented normotensive, regular heart rate, respiratory of 17, afebrile satting 96 on room air. Pertinent lab findings included WBC 16.4, hemoglobin 9.8 with MCV of 77, creatinine 0.8, BUN 11, calcium 11.8, magnesium 1.5, TSH 0.19, urinalysis shows no signs of infection. Shoulder x-ray shows a large pulmonary neoplasm in the right upper lobe, chest CT abdomen shows 8 x 2 x 6.8 cm pulmonary neoplasm in the right upper lobe destroying portions of the right 2nd and 3rd rib, 5 mm metastatic pulmonary nodule in the right lower lobe and soft tissue of the neck which was ordered shows no soft tissue or neck mass. Hospital course: Upon admission, patient's corrected calcium level was 11.8 with 1 week of weakness. There were no neurological deficits on exam. Patient was given IVF LR 1L 75ml/hr. Patient received CT guided lung biopsy (02/07/2025) for his right upper lobe lung mass. Throughout hospital stay, patient's calcium level was uptrending. Corrected calcium level of 11.1 to 11.5 and finally 11.9 today (02/09/2025). Patient's 25 vitamin D level was high at 101.2. Advised patient to follow-up with Dr. Felix, radiation oncology, on his biopsy results and next steps for treatment. Also advised patient to follow-up with endocrinology for his hypercalcemia and stopping vitamin D supplements given his high vitamin D levels. Per physical therapy recommendations, the patient has been [facility] for continued physical therapy to increase strength and functional activity tolerance. 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 Felix, radiation oncology, to pathology updates and next steps. -Please let your primary physician known hospital course so he may facilitate any referrals to physicians needed and obtain pathology records. -Please follow up with endocrinology given hypercalcemia, stop vitamin D supplements, and repeat comprehensive metabolic panel in one week. -Please continue all medication as prescribed -Please follow up with your primary care provider within one week of discharge -If your symptoms worsen,please seek immediate medical attention and return to your nearest emergency room -If you do not have a primary care provider, [facility] [address], [place] [address], Safe to discharge to SNF Assessment and plan discussed with my attending physician Dr. Rubio and Dr. Douglas (PGY-3) Dr. Scott (PGY-1)- Internal medicine resident Time Spent with Patient Time attestation: Total time spent providing and/or coordinating discharge services: Time spent: Greater than 30 minutes Exam Vital Signs Temp Pulse Resp BP Pulse Ox O2 Del Method O2 Flow Rate 97.7 F 79 18 145/84 H 92 L Room Air 3 02/09/25 08:00 02/09/25 08:00 02/09/25 08:00 02/09/25 08:00 02/09/25 08:00 02/09/25 08:00 02/07/25 14:50 Narrative Exam General: No acute distress, well nourished Eye: PERRL, EOMI, normal conjunctiva, no scleral icterus HENT: Normocephalic, atraumatic, hearing intact to conversation at normal volume, moist oral mucosa Neck: Supple, non-tender, no JVD, no lymphadenopathy Lungs: Non-labored respirations, symmetric chest rise, Clear to auscultate bilaterally, reduced breathe sound in right lung Heart: Peripheral pulses intact bilaterally, Regular Rate and Rhythm. grade II/IV Systolic ejection murmur. Abdomen: Soft, non-tender, non-distended Musculoskeletal: Normal range of motion and strength Skin: Skin is warm, dry, no rashes or lesions. Psychiatric: Cooperative, appropriate mood and affect Neuro: Cranial nerves II-XII grossly intact. Strength 3/5 throughout. Sensations intact to light touch. Discharge Plan Plan Patient Disposition: [facility] [facility] [place] Patient condition on transfer: Stable Care Plan Goals: Instructions: -Please follow up with Dr. Felix, radiation oncology, to pathology updates and next steps. -Please let your primary physician known hospital course so he may facilitate any referrals to physicians needed and obtain pathology records. -Please follow up with endocrinology given hypercalcemia, stop vitamin D supplements, and repeat comprehensive metabolic panel in one week. -Please continue all medication as prescribed -Please follow up with your primary care provider within one week of discharge -If your symptoms worsen,please seek immediate medical attention and return to your nearest emergency room -If you do not have a primary care provider, you may follow up at the [facility] at [address], [place] [address], Prescriptions/Referrals Prescriptions/Med Rec: Continued oxybutynin chloride 10 mg tablet extended release 24hr 10 mg PO QDAY amlodipine [Norvasc] 5 MG tablet 5 mg PO QDAY Qty: 0 albuterol sulfate [Proventil HFA] 6.7 GM HFA aerosol inhaler 2 puff Inhalation Q6HR PRN (Reason: SHORTNESS OF BREATH) Qty: 0 valacyclovir 1 gram tablet 1 g PO HS Patient Comments: TAKE 1 TABLET BY MOUTH AT BEDTIME DAILY ORALLY 90 DAYS tiotropium bromide [Spiriva with HandiHaler] 18 mcg capsule, w/inhalation device 1 cap inhalation QDAY Patient Comments: INHALE 1 CAPSULE DAILY FOR COPD FOR 90 DAYS Treledebi Ellipta 100-62.5-25 mcg blister with device 1 puff inhalation QDAY Patient Comments: INHALE 1 PUFF BY MOUTH ONCE A DAY famotidine 40 mg tablet 40 mg PO BID Patient Comments: TAKE 1 TABLET BY MOUTH TWICE A DAY FOR HEARTBURN tizanidine 4 mg tablet 4 mg PO DAILY PRN (Reason: muscle relaxer) Patient Comments: FOR MUSCLE SPASMS ibuprofen 800 mg tablet 800 mg PO Q12H PRN (Reason: pain) Patient Comments: TAKE 1 TABLET BY MOUTH EVERY 12 HOURS WITH FOOD OR MILK NEEDED prn for back pain and for all kinds of pain metformin 500 mg tablet 500 mg PO BID Rx Instructions: with food omeprazole 40 mg capsule,delayed release(DR/EC) 40 mg PO ACBR Patient Comments: 1 CAPSULE 30 MINUTES BEFORE MORNING MEAL ORALLY sennosides-docusate sodium [Senexon-S] 8.6-50 mg tablet 2 tab-cap PO QDAY Rx Instructions: 2 tablets lisinopril 30 mg tablet 30 mg PO DAILY Stiolto Respimat 2.5-2.5 mcg/actuation mist 2 puff INHALATION DAILY Patient Comments: 2 PUFFS INHALATION ONCE A DAY COPD hydrocodone-acetaminophen 10-325 mg tablet 1 tab PO Q8H PRN (Reason: pain) Patient Comments: TAKE 1 TABLET BY MOUTH NEEDED FOR PAIN EVERY 8 HOURS Discontinued metformin 1,000 mg Tablet 1,000 mg PO BID Qty: 0 lisinopril 10 MG tablet 10 mg PO QDAY Qty: 0 calcium carbonate 260 mg calcium (648 mg) tablet 1 tab PO QDAY Patient Comments: OTC*TAKE 1 TABLET BY MOUTH TWICE A DAY FOR 90 DAYS Referrals: Ron Jason MD [Physician] - Arvin Felix MD [Physician] - Noah Hair MD [Primary Care Provider] - Outpatient Orders (i.e. Home Health, Labs, Imaging): Comprehensive Metabolic Panel (Routine) Location: None Selected Ordered By: Qing Hickman Patient/Caregiver Discharge Instructions Print Language: Bulgarian Stand Alone Forms: [facility]ba Award Info., Patient Portal Info Letter Discharge Order Discharge Orders: Discharge (Routine); Ordered 02/09/25 Ordered By: Qing Hickman Quality Discharge Quality Measures VTE prophylaxis Attestestation MD Attestation I attest that I was physically present for the evaluation, physical examination, lab and imaging review of the patient with the residents. I discussed the case with the residents and agree with the findings and plans of care as documented above. Shahid Rubio MD
[2025-02-09 12:00] VITALS: BP 147/81; PULSE 82; PULSE 87; RESP 18; TEMP 36.5; O2SAT 94
[2025-02-09] MEDS: INSULIN LISPRO (AdmeLOG) 1 UNIT/0.01 ML UNIT SC (12:01)
[2025-02-09 16:00] VITALS: PULSE 84
--- NOTE | 2025-02-09 16:30 | PC.NURSE ---
Before pt was picked up, around 1530, I called [facility] to give report, I left a voicemail to call me back. Pt got picked up at 1610, I attempted again several times to give report at around 1625. I called 3 times, choosing the option for each nurses station. Then I called again and tried the option for the Orthotic Finish Grinding Technician IRENE, again received a recording stating that the republican is unavailable. I informed Greg my Charge nurse, because I have been unable to give report. She told me to wait till they call back
[2025-02-13 10:52] LABS: Alpha-1-Antitrypsin* 255 mg/dL (83-199)
[2025-02-14 14:09] LABS: Vitamin D,1,25 (OH)2,Total 38 pg/mL (18-72); Vitamin D2, 1,25 (OH)2 <8 pg/mL; Vitamin D3, 1,25 (OH)2 38 pg/mL
== END 2025-02-09 16:10 | disposition skilled nursing facility (03) | DRG 182 ==
LOC: SERX 13:52 → SERHOLD 23:19 → S3SX 02-07 05:28
PROVIDERS: Physician Assistant Medical; Radiology Therapeutic Radiology; Admitting Provider Internal Medicine; Emergency Provider Emergency Medicine; PCP Family Medicine; Visit Provider Student in an Organized Health Care Education/Training Program
DX: C34.91 Malignant neoplasm of unspecified part of right bronchus or lung (principal); E83.52 Hypercalcemia; I10 Essential (primary) hypertension; E11.9 Type 2 diabetes mellitus without complications; D72.829 Elevated white blood cell count, unspecified; D50.9 Iron deficiency anemia, unspecified; K76.89 Other specified diseases of liver; N28.1 Cyst of kidney, acquired; K42.9 Umbilical hernia without obstruction or gangrene; K57.30 Diverticulosis of large intestine without perforation or abscess without bleeding; K40.90 Unilateral inguinal hernia, without obstruction or gangrene, not specified as recurrent; M51.369 Other intervertebral disc degeneration, lumbar region without mention of lumbar back pain or lower extremity pain; M85.80 Other specified disorders of bone density and structure, unspecified site; Z87.891 Personal history of nicotine dependence; R26.2 Difficulty in walking, not elsewhere classified; E05.80 Other thyrotoxicosis without thyrotoxic crisis or storm; Z85.46 Personal history of malignant neoplasm of prostate; Z90.79 Acquired absence of other genital organ(s); Z79.84 Long term (current) use of oral hypoglycemic drugs
CPT/HCPCS: 36415; 70491; 71045; 71260; 73030; 74177; 77012; 80053; 81001; 82103; 82306; 82310; 82378; 82652; 82728; 83036; 83540; 83550; 83735; 83970; 84100; 84153; 84439; 84443; 85025; 85046; 85610; 85730; 86300; 86304; 93005; 93225; 96361; 96374; 96376; 97162; A4649; J1815; J2270; J3010; J3475; J7120; J7999; Q9967; A9270